=== PATIENT | female | born 1980 | race Caucasian/White ===

== ENCOUNTER 2017-04-22 21:16 | Outpatient (CLI) | payer OTHER ==
[~2017-04-22] VITALS: Ht 177.8 cm; Wt 69.4 kg
[2017-04-22 21:46] LABS: ADD UMIC YES; UR ASCORBIC ACID NEGATIVE (NEGATIVE); UR BILIRUBIN (Dip) NEGATIVE (NEGATIVE); UR BLOOD (Dip) 1+ mg/dL (NEGATIVE); UR CLARITY CLEAR (CLEAR); UR COLOR YELLOW (YELLOW); UR GLUCOSE (Dip) NEGATIVE (NEGATIVE); UR KETONES (Dip) NEGATIVE (NEGATIVE); UR LEUKOCYTE ESTERASE (Dip) NEGATIVE Leu/ul (NEGATIVE); UR MUCUS FEW /HPF (NONE SEEN); UR NITRITE (Dip) NEGATIVE (NEGATIVE); UR RBC 3 /HPF (0-5); UR SPECIFIC GRAVITY (Dip) 1.019 (1.003-1.030); UR TOTAL PROTEIN (Dip) NEGATIVE (NEGATIVE); UR UROBILINOGEN (Dip) 1+ mg/dL (NEGATIVE)
[2017-04-22] MEDS ORDERED: LACTATED RINGER'S 1,000 ML IV SCH (22:05)
[2017-04-22 22:08] VITALS: Ht 177.8 cm; Wt 69.4 kg
[2017-04-22] MEDS ORDERED: TERBUTALINE 1 MG/ML INJ SC PRN (22:30)
--- NOTE | 2017-04-22 23:00 | RADRPT ---
PROCEDURE: CERVICAL LENGTH ULTRASOUND CLINICAL INDICATION: Pre-term labor. TECHNIQUE: Trans-vaginal imaging of the cervical canal was performed utilizing gracia-scale imaging. Sagittal and transverse images were obtained. Trans-abdominal images were also obtained. The evon ges were reviewed on a PACS workstation. COMPARISON: None. FINDINGS: The cervix is closed with a length of 4 cm. There is a single live intrauterine . heart rate is 126 beats per minute. Position is cephalic and placenta is anterior, grade 2. There is no placenta previa. IMPRESSION: 1. Cervical length measures 4 cm. RPTAT: HFN .Denis Engel MD, MD Date Time Electronically viewed and signed by .Denis Engel MD, MD on 04/22/2017 23:00 .N/
[2017-04-22 23:25] LABS: BASOPHIL # 0.1 10^3/ul (0.0-0.1); BASOPHILS % 0.6 % (0.0-2.0); EOSINOPHILS # 0.3 10^3/ul (0.0-0.5); HEMATOCRIT 33.5 % (37.0-47.0); HEMOGLOBIN 11.7 g/dl (12.0-16.0); LYMPHOCYTES # 3.6 10^3/ul (0.8-2.9); LYMPHOCYTES % 25.2 % (15.0-51.0); MEAN CORPUSCULAR HEMOGLOBIN 31.5 pg (29.0-33.0); MEAN CORPUSCULAR HGB CONC 34.9 g/dl (32.0-37.0); MEAN CORPUSCULAR VOLUME 90.1 fl (82.0-101.0); MEAN PLATELET VOLUME 9.6 fl (7.4-10.4); MONOCYTE # 0.8 10^3/ul (0.3-0.9); MONOCYTES % 5.6 % (0.0-11.0); NEUTROPHIL # 9.4 10^3/ul (1.6-7.5); NEUTROPHILS % 65.3 % (39.0-77.0); PLATELET COUNT 239 10^3/UL (140-415); RED BLOOD COUNT 3.72 10^6/ul (4.20-5.40); RED CELL DISTRIBUTION WIDTH 13.2 % (11.5-14.5); WHITE BLOOD COUNT 14.5 10^3/ul (4.8-10.8)
--- NOTE | 2017-04-22 23:37 | PN ---
Triage Information Date/Time Reason for visit: Uterine contractions Weeks of Gestation 35w 3d /Para Additional information +THC Objective Heart Rate Comments reactive Contractions: >10 Minutes Apart Exam 0.5/40/-4 Results/Medications Result Diagram: 04/22/17 2254 Results 24 hrs Laboratory Tests Test 04/22/17 21:00 04/22/17 22:54 Urine Color YELLOW Urine Clarity CLEAR Urine pH 6.0 Urine Specific [place] 1.019 Urine Ketones NEGATIVE Urine Nitrite NEGATIVE Urine Bilirubin NEGATIVE Urine Urobilinogen 1+ H Urine Leukocyte Esterase NEGATIVE Urine Microscopic RBC 3 Urine Microscopic WBC 1 Urine Mucus FEW A Urine Hemoglobin 1+ H Urine Glucose NEGATIVE Urine Total Protein NEGATIVE White Blood Count 14.5 H Red Blood Count 3.72 L Hemoglobin 11.7 L Hematocrit 33.5 L Mean Corpuscular Volume 90.1 Mean Corpuscular Hemoglobin 31.5 Mean Corpuscular Hemoglobin Concent 34.9 Red Cell Distribution Width 13.2 Platelet Count 239 Mean Platelet Volume 9.6 Neutrophils % 65.3 Lymphocytes % 25.2 Monocytes % 5.6 Eosinophils % 2.0 Basophils % 0.6 Nucleated Red Blood Cells % 0.0 Neutrophils # 9.4 H Lymphocytes # 3.6 H Monocytes # 0.8 Eosinophils # 0.3 Basophils # 0.1 Nucleated Red Blood Cells # 0.0 Medications Current Medications Lactated Ringer's (Lr) 1,000 ml @ 125 mls/hr Q8H IV Last administered on 04/22 22:49; Admin Dose 125 MLS/HR; Start 04/22/17 at 22:05 Terbutaline Sulfate (Brethine) 0.25 mg PRN PRN SC UTERINE CONTRACTIONS Last administered on 04/22/17 22:49; Admin Dose 0.25 MG; Start 04/22/17 at 22:30 Imaging Results CL 4cm Disposition: Discharge Assessment/Plan 36 y/o at 35w 3d with h/o CS x3, not in labor -discharge home with labor precautions -f/u with OB SHAYLA CORMIER Apr 22, 2017 23:37
[2017-04-23 00:04] LABS: BARBITURATES Negative (NEGATIVE); BENZODIAZEPINES Negative (NEGATIVE); CANNABINOIDS Positive (NEGATIVE); COCAINE Negative (NEGATIVE); OPIATES Negative (NEGATIVE)
--- NOTE | 2017-04-23 00:20 | TRIAGE ---
OB Triage Datetime Report Generated by CPN: 04/23/2017 00:20 Datetime: 04/23/2017 00:00 Stage of : OB Triage Datetime: 04/22/2017 22:00 Labor Evaluation Frequency: 7-10 Monitor Mode: External Duration (sec)2399: 40-60 Pattern: Normal: <= 5 Contractions in 10 Minutes Contraction Comments: IRREGULAR PATTERN Heart Rate FHR Baseline Rate: 125 Monitor Mode: External US FHR Baseline Changes: No Baseline Change Variability: Moderate 6-25 bpm Accelerations: 15X15 Decelerations: None Datetime: 04/22/2017 21:25 Vaginal Exam Dilatation (cms): 0.5 Effacement (%): 40 Station: -4 Exam By: ifrah wallace Vaginal Bleeding: None Cervix, Consistency: Firm Cervix, Position: Posterior Presentation 'A': Unable to Assess Lie 'A': Unable to Assess Datetime: 04/22/2017 21:23 EGA: 35.3 Datetime: 04/22/2017 21:21 Monitor Mode: Palpation Resting Tone [place]: Relaxed Datetime: 04/22/2017 21:05 Stage of : OB Triage Assessment Type: Triage Time of Arrival: 04/22/2017 21:05 Arrived By: Wheelchair Arrived From: Home Chief Complaint: UC'S Movement: Present Contractions: Regular Time Contractions Began: 04/21/2017 18:00 Contractions: Q4-5 Rupture of Membranes: Denies Vaginal Bleeding: None Vaginal Discharge: Denies Recent Sexual Intercouse: Denies Abdominal Trauma: Not Applicable Patient Complaints: Contractions Time Provider Notified: 04/22/2017 22:00 Provider Notified: LLUVIA Initial Plan: EFM, R/O LABOR Maternal Assessment Level of Consciousness: Fully Conscious Headache: Denies Blurred Vision: No Respiratory Effort: Unlabored; Regular Rhythm; Equal Expansion Nausea/Vomiting: Denies RUQ Epigastric Pain: Denies Facial Edema: None Fall Risk Assessment History of Falling: (0) No Secondary Diagnosis: (0) No Ambulatory Aid: (0) Bedrest/Nurse Assist IV Therapy: (0) No Gait: (0) Normal/Bedrest/Immobile Mental Status: (0) Oriented to Own Ability Fall Score: 0 Fall Risk Score Definition: No Risk: No action required
== END 2017-04-22 23:57 | disposition home or self-care (01) ==
LOC: OBT 21:16 → L-D 21:18 → OBT 23:57
PROVIDERS: ATTEND Obstetrics & Gynecology
DX: O62.9 Abnormality of forces of labor, unspecified (principal); Z3A.35 35 weeks gestation of pregnancy
CPT/HCPCS: 36415; 76817; 80307; 81001; 85025; 96360; 96372; J3105; J7120; Z7500; G0463

== ENCOUNTER 2017-05-09 15:32 | Inpatient (IN) | payer OTHER ==
[~2017-05-09] VITALS: Ht 177.8 cm; Wt 69.7 kg
[2017-05-09 15:48] VITALS: Ht 177.8 cm; Wt 69.7 kg
[2017-05-09 15:49] VITALS: BP 120/72; PULSE 18; RESP 18
[2017-05-09] MEDS ORDERED: PREN-93 PO (15:53)
[2017-05-09] MEDS ORDERED: CALC-68 PO (15:53)
--- NOTE | 2017-05-09 16:43 | RADRPT ---
PROCEDURE: US OB biophysical profile. CLINICAL INDICATION: Spontaneous rupture of membranes TECHNIQUE: Multiple sonographic images of the pelvis were obtained. The images were reviewed on a PACS workstation. COMPARISON: April 22, 2017 FINDINGS: There is a single live intrauterine , in cephalic presentation. A normal heart rate i s identified measuring 128 beats per minute. The amniotic fluid index is within normal limits measur ing 15.3 cm. The placenta is located anteriorly grade II - III with multiple calcifications. Biophysical profile: movement 2/2 tone 2/2. breathing 2/2 MEMO 2/2 Total 8 IMPRESSION: 1. Biophysical profile score of 8/8. 2. Single live intrauterine in cephalic presentation with normal heart rate of 128 b pm. 3. Normal amniotic fluid index of 15.3 cm. Physician Price Date Time Electronically viewed and signed by Physician Price on 05/09/2017 16:42 RADHA/
--- NOTE | 2017-05-09 17:50 | TRIAGE ---
OB Triage Datetime Report Generated by CPN: 05/09/2017 17:50 Datetime: 05/09/2017 17:47 Vaginal Exam Dilatation (cms): 0.5 Station: -3 Exam By: KHEMANI Datetime: 05/09/2017 16:56 Labor Evaluation Frequency: OCCASS Monitor Mode: External Duration (sec)2399: 40-120 Pattern: Normal: <= 5 Contractions in 10 Minutes Resting Tone [place]: Relaxed Heart Rate FHR Baseline Rate: 130 Monitor Mode: External US Variability: Moderate 6-25 bpm Accelerations: 15X15 Decelerations: None Category: Category I Datetime: 05/09/2017 16:16 Labor Evaluation Frequency: UNABLE TO DETECT. Monitor Mode: External Pattern: Normal: <= 5 Contractions in 10 Minutes Resting Tone [place]: Relaxed Heart Rate FHR Baseline Rate: 130 Monitor Mode: External US Variability: Moderate 6-25 bpm Accelerations: 15X15 Decelerations: Variable Category: Category II Datetime: 05/09/2017 15:56 Assessment Type: Admission Assessment Maternal Assessment Level of Consciousness: Fully Conscious DTR's/Clonus: DTRs 2+; No Clonus Headache: Denies Blurred Vision: No Respiratory Effort: Unlabored; Regular Rhythm; Equal Expansion Breath Sounds, Left: Clear and Equal Breath Sounds, Right: Clear and Equal Nausea/Vomiting: Denies RUQ Epigastric Pain: Denies Lower Extremities Edema: None Degree: None Upper Extremities Edema: None Degree: None Facial Edema: None Fall Risk Assessment History of Falling: (0) No Secondary Diagnosis: (0) No Ambulatory Aid: (0) Bedrest/Nurse Assist IV Therapy: (0) No Gait: (0) Normal/Bedrest/Immobile Mental Status: (0) Oriented to Own Ability Fall Score: 0 Fall Risk Score Definition: No Risk: No action required Datetime: 05/09/2017 15:55 Time of Arrival: 05/09/2017 15:23 EGA: 37.6 Arrived By: Ambulatory Arrived From: Home Chief Complaint: R/O SROM. PT. STATES SHE FEELS LEAKING AT 1315 Movement: Present Contractions: Irregular Time Contractions Began: 05/09/2017 13:15 Rupture of Membranes: Unsure Vaginal Bleeding: None Vaginal Discharge: Denies Recent Sexual Intercouse: Denies Abdominal Trauma: Not Applicable Patient Complaints: None Time Provider Notified: 05/09/2017 16:20 Provider Notified: LLUVIA Initial Plan: TOCO/ US Datetime: 05/09/2017 15:40 Pain Assessment Pain Scale: 4 Pain Presence: Intermittent Pain Type: Pressure Pain Location: Abdomen Pain Relief Measures: Comfort Measures Datetime: 04/22/2017 21:23 EGA: 35.3 Datetime: 04/22/2017 21:05 Fall Score: 0 Fall Risk Score Definition: No Risk: No action required
[2017-05-09] MEDS ORDERED: CARBOPROST 250 MCG INJ IM PRN (18:30)
[2017-05-09] MEDS ORDERED: MISOPROSTOL 200 MCG TAB PR PRN (18:30)
[2017-05-09] MEDS ORDERED: OXYTOCIN 30 UNITS/LR 500 ML IV SCH (18:30)
[2017-05-09] MEDS ORDERED: METHYLERGONOVINE 0.2 MG INJ IM PRN (18:30)
[2017-05-09] MEDS ORDERED: CEFAZOLIN 2 GM/50 ML (PMX) 50 ML IV SCH (18:30)
[2017-05-09] MEDS ORDERED: OXYTOCIN 30 UNITS/LR 500 ML IV PRN (18:30)
--- NOTE | 2017-05-09 18:37 | RADRPT ---
PROCEDURE: US OB. CLINICAL INDICATION: Size and dates , contractions TECHNIQUE: Multiple sonographic images of the pelvis and gravid uterus were obtained. The images were reviewed on a PACS workstation. COMPARISON: US PELVIS 05/09/2017 FINDINGS: There is a single viable intrauterine gestation. Cardiac activity is present with 117 beats per min [place]. There is a vertex presentation. The placenta is anterior. There is no evidence for an abruption or placenta previa. Measurements were made in order to determine age. The results are as follows: BPD =8.6 cm HC =31.5 cm AC =31.8 cm FL =6.9 cm Estimated gestational age of approximately 35 weeks and 2 days based on ultrasound measurements. Clinical age: 37 weeks and 6 days. The estimated date of delivery is 06/11/2017, based on ultrasound measurements. The EFW = 2677 g, 9.7%, based on LMP age. RPTAT: AA IMPRESSION: Single viable intrauterine gestation of approximately 35 weeks and 2 days based on ultrasound measu rements. Mild bradycardia. Smaller than clinical age by 2.5 weeks. .Pollo Reilly MD, Date Time Electronically viewed and signed by .Pollo Reilly MD, on 05/09/2017 18:37 .S/
[2017-05-09] MEDS: LACTATED RINGER'S 1,000 ML IV SCH ×2 (18:56→23:04)
[2017-05-09] MEDS ORDERED: TERBUTALINE 1 MG/ML INJ SC ONE (19:00)
--- NOTE | 2017-05-09 20:18 | HP ---
Date/Time of Note Date/Time of Note DATE: 05/09/17 TIME: 20:13 OB - History Hx of Present Free Text/Dictation 36-year-old female 8 para 3 AB and ectopic 4 at 37+ weeks gestation by dates complaining of onset of contractions PVRs prior to admission Chief Complaint: Liver pains Last Menstrual Period: Aug 17, 2016 Estimated Due Date: May 24, 2017 : 8 Para: 3 Spontaneous : 4 (History of 3 ectopic pregnancies) Care: Good Care Ultrasounds: No ultrasounds Obstetrical Complications: Other (Persistent marijuana use, no or poor care) Medical Complications: Other (Previous 3) Past Family/Social History * Past Medical, Surgical, Family and Obstetric Histories reviewed from chart. Blood Type: A+ Rubella: immune RPR/VDRL: Negative GBS Status: Negative HBsAG: Negative OB Admission Exam Vital Signs Vital Signs Vital Signs Date Time Temp Pulse Resp B/P Pulse Ox O2 Delivery O2 Flow Rate FiO2 05/09/17 15:49 98.4 18 18 120/72 Room Air Physical Exam HEENT: WNL Heart: Rhythm Normal Lungs: Clear, Equal Abdomen: WNL Extremities: Normal Reflexes: Normal Cervical Dilatation: None Effacement: 0% Station: -3 Accelerations: Accelerations Present Decelerations: No Decelerations Varibility: Marked Contractions on Admission: 6-10 Minutes Apart Date/Time Contractions Began: May 09, 2017 Frequency of Contractions: Every 5 6-10 minutes Duration: Over 40 seconds Intensity: Mild Last 72 hours Lab Results CBC & BMP 05/09/17 18:25 OB Assessment/Plan Other Assessment: Poor dates 37+ weeks gestation Previous 3 Poor care Other plan: After discussion with the patient decision was made to proceed with cessation of contraction using terbutaline We will try to obtain more information in regards to early ultrasound on this patient Estimation of weight today was 2600 g plus minus We will consult perinatology in regards to perinatology ultrasound that was done on May 07 DOMINICK HENRY MD May 09, 2017 20:18
[2017-05-09] MEDS: TERBUTALINE 1 MG/ML INJ SC SCH (21:30)
[2017-05-09] MEDS ORDERED: DIPHENHYDRAMINE 50 MG CAP PO ONE (23:30)
[2017-05-10] MEDS: TERBUTALINE 1 MG/ML INJ SC SCH ×3 (00:30→06:30)
[2017-05-10] MEDS ORDERED: PROPOFOL 200 MG INJ ONE (07:00)
[2017-05-10] MEDS: LACTATED RINGER'S 1,000 ML IV SCH ×2 (07:11→14:04)
[2017-05-10] MEDS ORDERED: CITRIC ACID/SODIUM CITRATE 15 ML CUP PO ONE (15:30)
[2017-05-10] MEDS ORDERED: METOCLOPRAMIDE 10 MG INJ ONE (15:59)
[2017-05-10] MEDS ORDERED: ONDANSETRON 4 MG INJ ONE (15:59)
[2017-05-10] MEDS ORDERED: morphine SULFATE/PF (10 MG/10 ML) INJ ONE (15:59)
[2017-05-10] MEDS ORDERED: KETOROLAC 30 MG INJ ONE (15:59)
[2017-05-10] MEDS ORDERED: FENTAnyl 50 MCG/ML VIAL ONE (16:24)
--- NOTE | 2017-05-10 17:09 | QN ---
Documentation Comment EDC is set by perinatologist to be May 24, 2017 DOMINICK HENRY MD May 10, 2017 17:09
--- NOTE | 2017-05-10 17:09 | OPR ---
Operative Report Planned Procedure Procedure date May 10, 2017 Procedure(s) Repeat section Performed by see signature line Assisting provider: KENIA GUEVARA MD Anesthesiologist: PJ LEON MD Pre-procedure diagnosis 38 weeks gestation Previous 2 Liver pains Anesthesia Type: spinal Procedure Description Under satisfactory anaesthesia a Pfannenstiel incision was made two fingerbreadth above and parallel to the symphysis of pubis around the previous scar and previous scar was removed Incision was extended laterally to the border of the Recti muscles on either sides. Incision was carried down with sharp and blunt dissection until fascia was reached. Anterior Recti muscle fascia was incised in mid portion and incision extended laterally to the border of skin incision. Fascia was mobilized from muscle superiorly and Recti muscles were from midline using sharp and blunt dissection. Peritoneum was visualized; Avoiding bowel and bladder it was incised . Incision was extended superiorly and inferiorly. Bladder blade was placed. Posterior peritoneum covering the lower segment of the uterus and lower segment of the uterus were incised.Low transverse uterine incision was made on lower segment of the uterus. Incision extended laterally to the border of Round Lig. on either sides and baby was delivered from OT. position . Amniotic fluid appeared clear. Cord blood was obtained and cord had 3 vessels . Placenta was delivered spontaneously and appeared intact and complete. Intrauterine cavity was rubbed with a laparotomy sponge. Uterine incision was closed in 2 layers using running stitches of No1 Monocryl. Hemostasis appeared secure. Ovaries and Fallopian tubes were within normal limits. Announcing needle, lap sponge and instrument count to be correct abdomen was closed in layers as follows: Peritoneum and Recti muscles with running stitches of 20 Vicryl. Fascia with running stitch of No 1 PDS. Subcutaneous tissue with running stitches of 20 Chromic and skin was closed using rafael. Patient tolerated the procedure well and was transferred to [facility] in good condition. Post-Procedure Post-procedure diagnosis Status post repeat Findings: Infant in OT position Nuchal cord 1 Status post left partial salpingectomy Estimated blood loss: other (500 cc) Specimen(s): no Grafts/Implants: no Complication(s): no Pt Condition post procedure: stable Disposition: PACU Physician Certification I, the undersigned physician, hereby certify that I have discussed the procedure described in this consent form with this patient (or the patient's legal guest experience representative), including: * The risk and benefits of the procedure; * Any adverse reactions that may reasonably be expected to occur; * Any alternative efficacious methods of treatment which may be medically viable ; * The potential problems that may occur during recuperation; * Potential for blood transfusion and associated risks/benefits; and * Any research or economic interest I may have regarding this treatment. I further certify that the patient/legally responsible person was encouraged to ask question and that all questions were answered. DOMINICK HENRY MD May 10, 2017 17:09
--- NOTE | 2017-05-10 17:09 | QN ---
Documentation Comment EDC is set by perinatologist to be May 24, 2017 DOMINICK HENRY MD May 10, 2017 17:09
--- NOTE | 2017-05-10 17:09 | QN ---
Documentation Comment EDC is set by perinatologist to be May 24, 2017 DOMINICK HENRY MD May 10, 2017 17:09
[2017-05-10] MEDS ORDERED: NALOXONE (0.4 MG/ML) INJ IV PRN ×2 (18:30→21:00)
[2017-05-10] MEDS ORDERED: HYDROmorphONE (0.2 MG/ML) 10ML SYG IV PRN ×3 (18:30)
[2017-05-10] MEDS ORDERED: MEPERIDINE 25 MG INJ IV PRN (18:30)
[2017-05-10] MEDS ORDERED: DIPHENHYDRAMINE 50 MG INJ IV PRN ×2 (18:30)
[2017-05-10] MEDS ORDERED: HYDROmorphONE 1 MG/ML SYG IV PRN (18:30)
[2017-05-10] MEDS ORDERED: HYDROmorphONE 0.5 MG/0.5 ML SYG IV PRN (18:30)
[2017-05-10] MEDS ORDERED: ONDANSETRON 4 MG INJ IV PRN ×2 (18:30)
[2017-05-10] MEDS ORDERED: LANOLIN 7 GM TUBE TOP PRN (20:30)
[2017-05-10] MEDS ORDERED: METHYLERGONOVINE 0.2 MG INJ IM PRN (20:30)
[2017-05-10] MEDS ORDERED: HYDROCODONE/APAP (5/325) TAB PO PRN (20:30)
[2017-05-10] MEDS ORDERED: NA PHOSPHATE/BIPHOS 133 ML ENEMA PR PRN (20:30)
[2017-05-10] MEDS ORDERED: CARBOPROST 250 MCG INJ IM PRN (20:30)
[2017-05-10] MEDS ORDERED: OXYTOCIN 30 UNITS/LR 500 ML IV PRN (20:30)
[2017-05-10] MEDS ORDERED: MISOPROSTOL 200 MCG TAB PR PRN (20:30)
[2017-05-10 20:40] VITALS: BP 129/77; PULSE 70; RESP 21
[2017-05-10] MEDS ORDERED: KETOROLAC 30 MG INJ IV PRN (21:00)
[2017-05-10] MEDS: SENNA/DOCUSATE NA (8.6MG/50MG) TAB PO SCH (21:00)
[2017-05-10] MEDS: CEFAZOLIN 2 GM/50 ML (PMX) 50 ML IV SCH (21:03)
[2017-05-10] MEDS: HYDROmorphONE 0.5 MG/0.5 ML SYG IV PRN (21:04)
[2017-05-10 22:00] VITALS: BP 126/78; PULSE 54; RESP 19
[2017-05-10] MEDS: IBUPROFEN 800 MG TAB PO SCH (22:00)
[2017-05-11 00:19] VITALS: BP 133/73; PULSE 56; RESP 20
[2017-05-11] MEDS: LACTATED RINGER'S 1,000 ML IV SCH ×4 (01:18→20:03)
[2017-05-11 04:00] VITALS: BP 104/65; PULSE 62; RESP 20
[2017-05-11] MEDS: CEFAZOLIN 2 GM/50 ML (PMX) 50 ML IV SCH ×2 (04:35→11:36)
[2017-05-11] MEDS: IBUPROFEN 800 MG TAB PO SCH ×3 (04:56→22:02)
[2017-05-11] MEDS: HYDROmorphONE 0.5 MG/0.5 ML SYG IV PRN ×3 (06:16→15:40)
[2017-05-11 08:20] VITALS: PULSE 64; RESP 18
[2017-05-11] MEDS: SENNA/DOCUSATE NA (8.6MG/50MG) TAB PO SCH ×2 (09:00→20:57)
[2017-05-11] MEDS ORDERED: BISACODYL 10 MG SUPP PR ONE (10:30)
[2017-05-11] MEDS: CLINDAMYCIN 300 MG CAP PO SCH ×2 (11:36→18:06)
[2017-05-11 12:00] VITALS: BP 110/61; PULSE 68; RESP 18
--- NOTE | 2017-05-11 12:43 | PN ---
Date/Time of Note Date/Time of Note DATE: 05/11/17 TIME: 12:41 Assessment/Plan VTE Prophylaxis VTE Prophylaxis Intervention: ambulation Lines/Catheters IV Catheter Type (from Nrsg): Peripheral IV Assessment/Plan Assessment/Plan Status post postop day 1 Advance diet and ambulate Continue to monitor vital signs Subjective 24 Hr Interval Summary Passing flatus No bowel movement Tolerating diet Constitutional: BM, ambulates, flatus, improved, no complaints, urine output Pain Control: well controlled Exam/Review of Systems Vital Signs Vitals Vital Signs Date Time Temp Pulse Resp B/P Pulse Ox O2 Delivery O2 Flow Rate FiO2 05/11/17 09:04 96 21 05/11/17 08:20 98.2 64 18 Room Air Intake and Output 05/10/17 05/10/17 05/11/17 15:00 23:00 07:00 Intake Total 1625 ml 50 ml 5875 ml Output Total 1050 ml 500 ml 900 ml Balance 575 ml -450 ml 4975 ml Exam Free Text/Dictation Abdomen is soft bowel sounds present and abdomen is not distended Incision is covered Constitutional: alert, oriented, well developed Psych: nl mood/affect, no complaints Head: atraumatic, normocephalic Eyes: EOMI, nl conjunctiva, nl lids, nl sclera ENMT: mucosa pink and moist, nl external ears & nose, nl lips & teeth, nl nasal mucosa & septum Neck: non-tender, supple Respiratory: clear to auscultation, normal air movement Cardiovascular: nl pulses, regular rate and rhythm Gastrointestinal: nl liver, spleen, non-tender, soft Drains None Musculoskeletal: nl extremities to inspection, nl gait and stance Extremities: normal pulses Neurological: 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
[2017-05-11 16:00] VITALS: BP 119/72; PULSE 67; RESP 18
[2017-05-11] MEDS: OXYCODONE/ACETAMINOPHEN (5/325) TAB PO PRN ×2 (18:06→22:03)
[2017-05-11 19:40] VITALS: BP 119/77; PULSE 57; RESP 18
[2017-05-12] MEDS: CLINDAMYCIN 300 MG CAP PO SCH ×3 (00:10→12:03)
[2017-05-12] MEDS: OXYCODONE/ACETAMINOPHEN (5/325) TAB PO PRN ×4 (01:56→16:17)
[2017-05-12 04:00] VITALS: BP 106/55; PULSE 55; RESP 18
[2017-05-12] MEDS: LACTATED RINGER'S 1,000 ML IV SCH (04:03)
[2017-05-12] MEDS: IBUPROFEN 800 MG TAB PO SCH ×2 (06:02→14:26)
[2017-05-12 07:40] VITALS: BP 127/74; PULSE 62; RESP 18
[2017-05-12] MEDS: SENNA/DOCUSATE NA (8.6MG/50MG) TAB PO SCH (11:06)
--- NOTE | 2017-05-12 16:25 | DS ---
Date/Time of Note Date/Time of Note DATE: 05/12/17 TIME: 16:24 Obstetrical Discharge Record Final Diagnosis Final Diagnosis: Term delivered Other Final Diagnosis Status post repeat Section Section: Repeat Condition on Discharge Physical Assessment Last Vitals: See nurse's notes Voiding: Yes Bowel Movement: Yes Breast: Soft, non-tender, Filling Fundus: Firm Abdomen and Incision: Abdomen is soft nontender and not distended Incision healing well without induration and or erythema Episiotomy: Not applicable Calf Tenderness: No Patient Condition: Good DOMINICK HENRY MD May 12, 2017 16:25
--- NOTE | 2017-05-12 16:27 | DS ---
Date/Time of Note Date/Time of Note DATE: 05/12/17 TIME: 16:25 Discharge Summary Admission/Discharge Info Admit Date/Time May 09, 2017 at 18:00 Discharge Date/Time May 12, 2017 Discharge Diagnosis Status post repeat Patient Condition: Good Procedures Repeat delivery Hx of Present Illness 36-year-old female has repeat delivery Hospital Course Uncomplicated Home Meds Reported Medications Calcium Carb-Vit D3-Minerals (Calcium + D & Minerals Chew) 1 Each Tab.chew, 1 TAB PO DAILY, TAB.CHEW 05/09/17 Vit No.124/Iron/FA ( Vitamin Tablet) 1 Each Tablet, 1 EACH PO, TAB 05/09/17 Follow-up Plan To 3 days in clinic for staple removal Primary Care Provider Dayday Jackson Time spent on discharge: > 30 minutes DOMINICK HENRY MD May 12, 2017 16:27
[2017-05-12] MEDS ORDERED: IBUP800T25 PO (16:28)
--- NOTE | 2017-05-12 16:28 | PD.PPDC ---
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 Provider Information Physician Information [age]-year-old female had repeat delivery Diagnosis Final Diagnosis: Repeat Condition Patient Condition: Good Diet Diet: Resume Regular Diet Activity/Restrictions Activity: November Shower Restrictions: No Exercising No Lifting Nothing in the Vagina Return to Work or School: Jul 15, 2017 Follow-up Follow-up with Physician: 2, 3, Day/Days (In clinic for staple removal) Return to clinic for MANAGER FAST FOOD Instructions: Fever greater than 101 Chills OB Instructions: Breast Tenderness Depression Comment: Pelvic rest and no heart activity 2 months Surgical Instructions: Incisional Drainage Incisional Redness DOMINICK HENRY MD May 12, 2017 16:28
--- NOTE | 2017-05-12 16:28 | PD.PPDC ---
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 Provider Information Physician Information [age]-year-old female had repeat delivery Diagnosis Final Diagnosis: Repeat Condition Patient Condition: Good Diet Diet: Resume Regular Diet Activity/Restrictions Activity: November Shower Restrictions: No Exercising No Lifting Nothing in the Vagina Return to Work or School: Jul 15, 2017 Follow-up Follow-up with Physician: 2, 3, Day/Days (In clinic for staple removal) Return to clinic for EXPRESSIVE THERAPIST Instructions: Fever greater than 101 Chills OB Instructions: Breast Tenderness Depression Comment: Pelvic rest and no heart activity 2 months Surgical Instructions: Incisional Drainage Incisional Redness DOMINICK HENRY MD May 12, 2017 16:28
--- NOTE | 2017-05-12 16:28 | PD.PPDC ---
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 Provider Information Physician Information [age]-year-old female had repeat delivery Diagnosis Final Diagnosis: Repeat Condition Patient Condition: Good Diet Diet: Resume Regular Diet Activity/Restrictions Activity: November Shower Restrictions: No Exercising No Lifting Nothing in the Vagina Return to Work or School: Jul 15, 2017 Follow-up Follow-up with Physician: 2, 3, Day/Days (In clinic for staple removal) Return to clinic for RECEIVABLES SPECIALIST Instructions: Fever greater than 101 Chills OB Instructions: Breast Tenderness Depression Comment: Pelvic rest and no heart activity 2 months Surgical Instructions: Incisional Drainage Incisional Redness DOMINICK HENRY MD May 12, 2017 16:28
[2017-05-12 17:00] VITALS: BP 112/74; PULSE 72; RESP 17
--- NOTE | 2017-05-12 17:02 | PN ---
Date/Time of Note Date/Time of Note DATE: 05/12/17 TIME: 16:58 Assessment/Plan VTE Prophylaxis VTE Prophylaxis Intervention: ambulation Lines/Catheters IV Catheter Type (from Nrsg): Peripheral IV Subjective 24 Hr Interval Summary Free Text/Dictation 05/11/2017 0716 A 36 year female POD # 1 after duramorph is doing ok. no pain or itching, n/v, headache, back is clean and no inflammation. further care per surgery. Exam/Review of Systems Vital Signs Vitals Vital Signs Date Time Temp Pulse Resp B/P Pulse Ox O2 Delivery O2 Flow Rate FiO2 05/12/17 07:40 98.0 62 18 127/74 99 Room Air 05/11/17 14:17 21 Intake and Output 05/11/17 05/11/17 05/12/17 15:00 23:00 07:00 Output Total 2100 ml Balance -2100 ml Results Result Diagram: 05/11/17 0837 Medications Medications Current Medications Lactated Ringer's (Lr) 1,000 ml @ 125 mls/hr Q8H IV Last administered on 10:14; Admin Dose 125 MLS/HR; Start 05/10/17 at 20:03 Ibuprofen (Motrin) 800 mg Q8 PO Last administered on 05/12/17 14:26; Admin Dose 800 MG; Start 05/10/17 at 22:00 Simethicone (Mylicon) 160 mg Q8H PRN PO DISTENSION/GAS/BLOATING Last administered on 05/12/17 01:55; Admin Dose 160 MG; Start 05/10/17 at 20:30 Senna/Docusate Sodium (Senokot-S) 1 tab BID PO Last administered on 05/12/17 11:06; Admin Dose 1 TAB; Start 05/10/17 at 21:00 Sodium Biphosphate/ Sodium Phosphate (Fleet Enema) 133 ml DAILY PRN DC CONSTIPATION; Start 05/10/17 at 20:30 Diphtheria/ Tetanus/Acell Pertussis 0.5 ml 0.5 ml ONCE ONCE IM* ; Start at 09:00; Stop 05/13/17 at 09:01 Oxytocin/Lactated Ringer's 500 ml @ 0 mls/hr ONCE PRN IV For Hemorrhage Management Last administered on 11/3/17at 20:44; Admin Dose 125 MLS/HR; Start 05/10/17 at 20:30 Methylergonovine Maleate (Methergine) 0.2 mg ONCE PRN IM VAGINAL BLEEDING; Start 05/10/17 at 20:30 Carboprost Tromethamine (Hemabate) 250 mcg ONCE PRN IM VAGINAL BLEEDING; Start 05/10/17 at 20:30 Misoprostol (Cytotec) 1,000 mcg ONCE PRN DC VAGINAL BLEEDING; Start 05/10/17 at 20:30 Acetaminophen/ Hydrocodone Bitart ([place] (5/325)) 2 tab Q4H PRN PO PAIN LEVEL 1 -5; Start 05/10/17 at 20:30 Oxycodone/ Acetaminophen (Percocet (5/ 325)) 2 tab Q4H PRN PO PAIN LEVEL 6-10 Last administered on 05/12/17 16:17; Admin Dose 2 TAB; Start 05/10/17 at 20:30 Clindamycin HCl (Cleocin) 300 mg Q6 PO Last administered on 05/12/17 12:03; Admin Dose 300 MG; Start 05/11/17 at 12:00 PJ LEON MD May 12, 2017 17:02
--- NOTE | 2017-05-12 17:02 | PN ---
Date/Time of Note Date/Time of Note DATE: 05/12/17 TIME: 16:58 Assessment/Plan VTE Prophylaxis VTE Prophylaxis Intervention: ambulation Lines/Catheters IV Catheter Type (from Nrsg): Peripheral IV Subjective 24 Hr Interval Summary Free Text/Dictation 05/11/2017 0716 A 36 year female POD # 1 after duramorph is doing ok. no pain or itching, n/v, headache, back is clean and no inflammation. further care per surgery. Exam/Review of Systems Vital Signs Vitals Vital Signs Date Time Temp Pulse Resp B/P Pulse Ox O2 Delivery O2 Flow Rate FiO2 05/12/17 07:40 98.0 62 18 127/74 99 Room Air 05/11/17 14:17 21 Intake and Output 05/11/17 05/11/17 05/12/17 15:00 23:00 07:00 Output Total 2100 ml Balance -2100 ml Results Result Diagram: 05/11/17 0837 Medications Medications Current Medications Lactated Ringer's (Lr) 1,000 ml @ 125 mls/hr Q8H IV Last administered on 10:14; Admin Dose 125 MLS/HR; Start 05/10/17 at 20:03 Ibuprofen (Motrin) 800 mg Q8 PO Last administered on 05/12/17 14:26; Admin Dose 800 MG; Start 05/10/17 at 22:00 Simethicone (Mylicon) 160 mg Q8H PRN PO DISTENSION/GAS/BLOATING Last administered on 05/12/17 01:55; Admin Dose 160 MG; Start 05/10/17 at 20:30 Senna/Docusate Sodium (Senokot-S) 1 tab BID PO Last administered on 05/12/17 11:06; Admin Dose 1 TAB; Start 05/10/17 at 21:00 Sodium Biphosphate/ Sodium Phosphate (Fleet Enema) 133 ml DAILY PRN [place] CONSTIPATION; Start 05/10/17 at 20:30 Diphtheria/ Tetanus/Acell Pertussis 0.5 ml 0.5 ml ONCE ONCE IM* ; Start at 09:00; Stop 05/13/17 at 09:01 Oxytocin/Lactated Ringer's 500 ml @ 0 mls/hr ONCE PRN IV For Hemorrhage Management Last administered on 11/3/17at 20:44; Admin Dose 125 MLS/HR; Start 05/10/17 at 20:30 Methylergonovine Maleate (Methergine) 0.2 mg ONCE PRN [place] VAGINAL BLEEDING; Start 05/10/17 at 20:30 Carboprost Tromethamine (Hemabate) 250 mcg ONCE PRN IM VAGINAL BLEEDING; Start 05/10/17 at 20:30 Misoprostol (Cytotec) 1,000 mcg ONCE PRN [place] VAGINAL BLEEDING; Start 05/10/17 at 20:30 Acetaminophen/ Hydrocodone Bitart ([place] (5/325)) 2 tab Q4H PRN PO PAIN LEVEL 1 -5; Start 05/10/17 at 20:30 Oxycodone/ Acetaminophen (Percocet (5/ 325)) 2 tab Q4H PRN PO PAIN LEVEL 6-10 Last administered on 05/12/17 16:17; Admin Dose 2 TAB; Start 05/10/17 at 20:30 Clindamycin HCl (Cleocin) 300 mg Q6 PO Last administered on 05/12/17 12:03; Admin Dose 300 MG; Start 05/11/17 at 12:00 PJ LEON MD May 12, 2017 17:02
--- NOTE | 2017-05-12 17:02 | PN ---
Date/Time of Note Date/Time of Note DATE: 05/12/17 TIME: 16:58 Assessment/Plan VTE Prophylaxis VTE Prophylaxis Intervention: ambulation Lines/Catheters IV Catheter Type (from Nrsg): Peripheral IV Subjective 24 Hr Interval Summary Free Text/Dictation 05/11/2017 0716 A 36 year female POD # 1 after duramorph is doing ok. no pain or itching, n/v, headache, back is clean and no inflammation. further care per surgery. Exam/Review of Systems Vital Signs Vitals Vital Signs Date Time Temp Pulse Resp B/P Pulse Ox O2 Delivery O2 Flow Rate FiO2 05/12/17 07:40 98.0 62 18 127/74 99 Room Air 05/11/17 14:17 21 Intake and Output 05/11/17 05/11/17 05/12/17 15:00 23:00 07:00 Output Total 2100 ml Balance -2100 ml Results Result Diagram: 05/11/17 0837 Medications Medications Current Medications Lactated Ringer's (Lr) 1,000 ml @ 125 mls/hr Q8H IV Last administered on 10:14; Admin Dose 125 MLS/HR; Start 05/10/17 at 20:03 Ibuprofen (Motrin) 800 mg Q8 PO Last administered on 05/12/17 14:26; Admin Dose 800 MG; Start 05/10/17 at 22:00 Simethicone (Mylicon) 160 mg Q8H PRN PO DISTENSION/GAS/BLOATING Last administered on 05/12/17 01:55; Admin Dose 160 MG; Start 05/10/17 at 20:30 Senna/Docusate Sodium (Senokot-S) 1 tab BID PO Last administered on 05/12/17 11:06; Admin Dose 1 TAB; Start 05/10/17 at 21:00 Sodium Biphosphate/ Sodium Phosphate (Fleet Enema) 133 ml DAILY PRN [place] CONSTIPATION; Start 05/10/17 at 20:30 Diphtheria/ Tetanus/Acell Pertussis 0.5 ml 0.5 ml ONCE ONCE IM* ; Start at 09:00; Stop 05/13/17 at 09:01 Oxytocin/Lactated Ringer's 500 ml @ 0 mls/hr ONCE PRN IV For Hemorrhage Management Last administered on 11/3/17at 20:44; Admin Dose 125 MLS/HR; Start 05/10/17 at 20:30 Methylergonovine Maleate (Methergine) 0.2 mg ONCE PRN IM VAGINAL BLEEDING; Start 05/10/17 at 20:30 Carboprost Tromethamine (Hemabate) 250 mcg ONCE PRN IM VAGINAL BLEEDING; Start 05/10/17 at 20:30 Misoprostol (Cytotec) 1,000 mcg ONCE PRN [place] VAGINAL BLEEDING; Start 05/10/17 at 20:30 Acetaminophen/ Hydrocodone Bitart ([place] (5/325)) 2 tab Q4H PRN PO PAIN LEVEL 1 -5; Start 05/10/17 at 20:30 Oxycodone/ Acetaminophen (Percocet (5/ 325)) 2 tab Q4H PRN PO PAIN LEVEL 6-10 Last administered on 05/12/17 16:17; Admin Dose 2 TAB; Start 05/10/17 at 20:30 Clindamycin HCl (Cleocin) 300 mg Q6 PO Last administered on 05/12/17 12:03; Admin Dose 300 MG; Start 05/11/17 at 12:00 PJ LEON MD May 12, 2017 17:02
--- NOTE | 2017-05-12 17:48 | PN ---
Date/Time of Note Date/Time of Note DATE: 05/12/17 TIME: 17:46 Assessment/Plan VTE Prophylaxis VTE Prophylaxis Intervention: ambulation Lines/Catheters IV Catheter Type (from Nrsg): Peripheral IV Subjective 24 Hr Interval Summary Free Text/Dictation 05/11/2017 0654 A 36 year female pod #1 after duramorph is doing well, no pain , itching, headache, back pain, breathing problem, back is clean. care per surgery. Exam/Review of Systems Vital Signs Vitals Vital Signs Date Time Temp Pulse Resp B/P Pulse Ox O2 Delivery O2 Flow Rate FiO2 05/12/17 17:00 98.1 72 17 112/74 99 Room Air 05/11/17 14:17 21 Intake and Output 05/11/17 05/11/17 05/12/17 15:00 23:00 07:00 Output Total 2100 ml Balance -2100 ml Results Result Diagram: 05/11/17 0837 Medications Medications Current Medications Lactated Ringer's (Lr) 1,000 ml @ 125 mls/hr Q8H IV Last administered on 10:14; Admin Dose 125 MLS/HR; Start 05/10/17 at 20:03 Ibuprofen (Motrin) 800 mg Q8 PO Last administered on 05/12/17 14:26; Admin Dose 800 MG; Start 05/10/17 at 22:00 Simethicone (Mylicon) 160 mg Q8H PRN PO DISTENSION/GAS/BLOATING Last administered on 05/12/17 01:55; Admin Dose 160 MG; Start 05/10/17 at 20:30 Senna/Docusate Sodium (Senokot-S) 1 tab BID PO Last administered on 05/12/17 11:06; Admin Dose 1 TAB; Start 05/10/17 at 21:00 Sodium Biphosphate/ Sodium Phosphate (Fleet Enema) 133 ml DAILY PRN [place] CONSTIPATION; Start 05/10/17 at 20:30 Diphtheria/ Tetanus/Acell Pertussis 0.5 ml 0.5 ml ONCE ONCE IM* ; Start at 09:00; Stop 05/13/17 at 09:01 Oxytocin/Lactated Ringer's 500 ml @ 0 mls/hr ONCE PRN IV For Hemorrhage Management Last administered on 05/10/17 20:44; Admin Dose 125 MLS/HR; Start 05/10/17 at 20:30 Methylergonovine Maleate (Methergine) 0.2 mg ONCE PRN IM VAGINAL BLEEDING; Start 05/10/17 at 20:30 Carboprost Tromethamine (Hemabate) 250 mcg ONCE PRN IM VAGINAL BLEEDING; Start 05/10/17 at 20:30 Misoprostol (Cytotec) 1,000 mcg ONCE PRN [place] VAGINAL BLEEDING; Start 05/10/17 at 20:30 Acetaminophen/ Hydrocodone Bitart ([place] (5/325)) 2 tab Q4H PRN PO PAIN LEVEL 1 -5; Start 05/10/17 at 20:30 Oxycodone/ Acetaminophen (Percocet (5/ 325)) 2 tab Q4H PRN PO PAIN LEVEL 6-10 Last administered on 05/12/17 16:17; Admin Dose 2 TAB; Start 05/10/17 at 20:30 Clindamycin HCl (Cleocin) 300 mg Q6 PO Last administered on 05/12/17 12:03; Admin Dose 300 MG; Start 05/11/17 at 12:00 PJ LEON MD May 12, 2017 17:48
--- NOTE | 2017-05-12 17:48 | PN ---
Date/Time of Note Date/Time of Note DATE: 05/12/17 TIME: 17:46 Assessment/Plan VTE Prophylaxis VTE Prophylaxis Intervention: ambulation Lines/Catheters IV Catheter Type (from Nrsg): Peripheral IV Subjective 24 Hr Interval Summary Free Text/Dictation 05/11/2017 0654 A 36 year female pod #1 after duramorph is doing well, no pain , itching, headache, back pain, breathing problem, back is clean. care per surgery. Exam/Review of Systems Vital Signs Vitals Vital Signs Date Time Temp Pulse Resp B/P Pulse Ox O2 Delivery O2 Flow Rate FiO2 05/12/17 17:00 98.1 72 17 112/74 99 Room Air 05/11/17 14:17 21 Intake and Output 05/11/17 05/11/17 05/12/17 15:00 23:00 07:00 Output Total 2100 ml Balance -2100 ml Results Result Diagram: 05/11/17 0837 Medications Medications Current Medications Lactated Ringer's (Lr) 1,000 ml @ 125 mls/hr Q8H IV Last administered on 10:14; Admin Dose 125 MLS/HR; Start 05/10/17 at 20:03 Ibuprofen (Motrin) 800 mg Q8 PO Last administered on 05/12/17 14:26; Admin Dose 800 MG; Start 05/10/17 at 22:00 Simethicone (Mylicon) 160 mg Q8H PRN PO DISTENSION/GAS/BLOATING Last administered on 05/12/17 01:55; Admin Dose 160 MG; Start 05/10/17 at 20:30 Senna/Docusate Sodium (Senokot-S) 1 tab BID PO Last administered on 05/12/17 11:06; Admin Dose 1 TAB; Start 05/10/17 at 21:00 Sodium Biphosphate/ Sodium Phosphate (Fleet Enema) 133 ml DAILY PRN [place] CONSTIPATION; Start 05/10/17 at 20:30 Diphtheria/ Tetanus/Acell Pertussis 0.5 ml 0.5 ml ONCE ONCE IM* ; Start at 09:00; Stop 05/13/17 at 09:01 Oxytocin/Lactated Ringer's 500 ml @ 0 mls/hr ONCE PRN IV For Hemorrhage Management Last administered on 05/10/17 20:44; Admin Dose 125 MLS/HR; Start 05/10/17 at 20:30 Methylergonovine Maleate (Methergine) 0.2 mg ONCE PRN IM VAGINAL BLEEDING; Start 05/10/17 at 20:30 Carboprost Tromethamine (Hemabate) 250 mcg ONCE PRN IM VAGINAL BLEEDING; Start 05/10/17 at 20:30 Misoprostol (Cytotec) 1,000 mcg ONCE PRN [place] VAGINAL BLEEDING; Start 05/10/17 at 20:30 Acetaminophen/ Hydrocodone Bitart ([place] (5/325)) 2 tab Q4H PRN PO PAIN LEVEL 1 -5; Start 05/10/17 at 20:30 Oxycodone/ Acetaminophen (Percocet (5/ 325)) 2 tab Q4H PRN PO PAIN LEVEL 6-10 Last administered on 05/12/17 16:17; Admin Dose 2 TAB; Start 05/10/17 at 20:30 Clindamycin HCl (Cleocin) 300 mg Q6 PO Last administered on 05/12/17 12:03; Admin Dose 300 MG; Start 05/11/17 at 12:00 PJ LEON MD May 12, 2017 17:48
--- NOTE | 2017-05-12 17:48 | PN ---
Date/Time of Note Date/Time of Note DATE: 05/12/17 TIME: 17:46 Assessment/Plan VTE Prophylaxis VTE Prophylaxis Intervention: ambulation Lines/Catheters IV Catheter Type (from Nrsg): Peripheral IV Subjective 24 Hr Interval Summary Free Text/Dictation 05/11/2017 0654 A 36 year female pod #1 after duramorph is doing well, no pain , itching, headache, back pain, breathing problem, back is clean. care per surgery. Exam/Review of Systems Vital Signs Vitals Vital Signs Date Time Temp Pulse Resp B/P Pulse Ox O2 Delivery O2 Flow Rate FiO2 05/12/17 17:00 98.1 72 17 112/74 99 Room Air 05/11/17 14:17 21 Intake and Output 05/11/17 05/11/17 05/12/17 15:00 23:00 07:00 Output Total 2100 ml Balance -2100 ml Results Result Diagram: 05/11/17 0837 Medications Medications Current Medications Lactated Ringer's (Lr) 1,000 ml @ 125 mls/hr Q8H IV Last administered on 10:14; Admin Dose 125 MLS/HR; Start 05/10/17 at 20:03 Ibuprofen (Motrin) 800 mg Q8 PO Last administered on 05/12/17 14:26; Admin Dose 800 MG; Start 05/10/17 at 22:00 Simethicone (Mylicon) 160 mg Q8H PRN PO DISTENSION/GAS/BLOATING Last administered on 05/12/17 01:55; Admin Dose 160 MG; Start 05/10/17 at 20:30 Senna/Docusate Sodium (Senokot-S) 1 tab BID PO Last administered on 05/12/17 11:06; Admin Dose 1 TAB; Start 05/10/17 at 21:00 Sodium Biphosphate/ Sodium Phosphate (Fleet Enema) 133 ml DAILY PRN [place] CONSTIPATION; Start 05/10/17 at 20:30 Diphtheria/ Tetanus/Acell Pertussis 0.5 ml 0.5 ml ONCE ONCE IM* ; Start at 09:00; Stop 05/13/17 at 09:01 Oxytocin/Lactated Ringer's 500 ml @ 0 mls/hr ONCE PRN IV For Hemorrhage Management Last administered on 05/10/17 20:44; Admin Dose 125 MLS/HR; Start 05/10/17 at 20:30 Methylergonovine Maleate (Methergine) 0.2 mg ONCE PRN IM VAGINAL BLEEDING; Start 05/10/17 at 20:30 Carboprost Tromethamine (Hemabate) 250 mcg ONCE PRN IM VAGINAL BLEEDING; Start 05/10/17 at 20:30 Misoprostol (Cytotec) 1,000 mcg ONCE PRN [place] VAGINAL BLEEDING; Start 05/10/17 at 20:30 Acetaminophen/ Hydrocodone Bitart ([place] (5/325)) 2 tab Q4H PRN PO PAIN LEVEL 1 -5; Start 05/10/17 at 20:30 Oxycodone/ Acetaminophen (Percocet (5/ 325)) 2 tab Q4H PRN PO PAIN LEVEL 6-10 Last administered on 05/12/17 16:17; Admin Dose 2 TAB; Start 05/10/17 at 20:30 Clindamycin HCl (Cleocin) 300 mg Q6 PO Last administered on 05/12/17 12:03; Admin Dose 300 MG; Start 05/11/17 at 12:00 PJ LEON MD May 12, 2017 17:48
[2017-05-13] MEDS ORDERED: DIPHTH/TET/ACEL PERTUSS (ADULT) 0.5 ML VIAL IM* ONE (09:00)
== END 2017-05-12 17:50 | disposition home or self-care (01) | DRG 766 ==
LOC: OBT 15:32 → L-D 15:33 → OBT 18:00 → L-D 18:00 → PP1 05-10 20:39
PROVIDERS: ADMIT Obstetrics & Gynecology; ATTEND Obstetrics & Gynecology
PROC: 10D00Z1 Extraction of Products of Conception, Low, Open Approach (ICD-10-PCS; principal; 2017-05-10 15:45)
DX: O34.211 Maternal care for low transverse scar from previous cesarean delivery (principal); Z37.0 Single live birth; Z3A.37 37 weeks gestation of pregnancy
CPT/HCPCS: 76815; 76818; 80307; 84112; 85025; 85610; 85730; 86592; 86850; 86900; 86901; 94760; 99464; G0463; J0690; J1170; J1885; J2274; J2405; J2590; J2765; J3010; J3105; J7120